=== PATIENT | male | born 1955 ===

== ENCOUNTER 2020-03-22 17:49 | Observation (INO) ==
[2020-03-22 19:02] LABS: ABS Basophils 0.1 10^3/ul (0-0.2); ABS Eosinophils 0.2 10^3/ul (0-0.6); ABS Lymphocytes 1.3 10^3/ul (1.0-4.8); Eosinophil % 2.4 %; Hematocrit 40 % (42-52); Lymphocyte % 14.8 %; Mean Corpuscular HGB Conc 35 g/dL (31-36); Mean Corpuscular Hemoglobin 31 pg (27-31); Mean Corpuscular Volume 90 fL (80-94); Mean Platelet Volume 8.3 fL (7.4-10.4); Platelet Count 216 10^3/uL (150-450); Red Blood Count 4.47 10^6 /uL (4.18-5.48); Red Cell Distribution Width 13 % (10-15); White Blood Count 8.6 10^3/uL (3.5-10.8)
[2020-03-22 19:15] LABS: Activated Partial Thrombo Time 31.5 seconds (26.0-38.0); INR 1.15 (0.82-1.09)
[2020-03-22 19:20] LABS: ALT 16 U/L (7-52); AST 16 U/L (13-39); Albumin/Globulin Ratio 1.3 (1-3); Alkaline Phosphatase 82 U/L (34-104); Anion Gap 9 mmol/L (2-11); BUN/Creatinine Ratio 11.7 (8-20); Blood Urea Nitrogen 11 mg/dL (6-24); CO2 Carbon Dioxide 26 mmol/L (22-32); Calcium 9.5 mg/dL (8.6-10.3); Chloride 104 mmol/L (101-111); EGFR African American 97.2 (>60); EGFR Non-African American 80.3 (>60); Globulin 3.1 g/dL (2-4); Glucose 95 mg/dL (70-100); Potassium 4.1 mmol/L (3.5-5.0); Sodium 139 mmol/L (135-145); Total Protein 7.1 g/dL (6.4-8.9)
[2020-03-22 19:26] LABS: Troponin I 0.04 ng/mL (<0.03)
[2020-03-22] MEDS ORDERED: Ondansetron 4 mg VIAL 2 MG/ML 2 ml VIAL IV PRN (19:39)
[2020-03-22 23:42] LABS: Troponin I 0.03 ng/mL (<0.03)
[2020-03-23 03:59] LABS: Troponin I 0.03 ng/mL (<0.03)
[2020-03-23 05:40] LABS: ABS Basophils 0.1 10^3/ul (0-0.2); ABS Eosinophils 0.3 10^3/ul (0-0.6); ABS Lymphocytes 1.3 10^3/ul (1.0-4.8); Eosinophil % 4.3 %; Hematocrit 40 % (42-52); Hemoglobin 13.7 g/dL (14.0-18.0); Lymphocyte % 17.3 %; Mean Corpuscular HGB Conc 34 g/dL (31-36); Mean Corpuscular Hemoglobin 31 pg (27-31); Mean Corpuscular Volume 91 fL (80-94); Mean Platelet Volume 8.2 fL (7.4-10.4); Platelet Count 204 10^3/uL (150-450); Red Cell Distribution Width 13 % (10-15); White Blood Count 7.4 10^3/uL (3.5-10.8)
[2020-03-23 05:45] LABS: INR 1.22 (0.82-1.09)
[2020-03-23 06:12] LABS: BUN/Creatinine Ratio 14.4 (8-20); Calcium 8.8 mg/dL (8.6-10.3); EGFR African American 102.2 (>60); EGFR Non-African American 84.4 (>60)
[2020-03-23 14:32] VITALS: BP 123/61
== END 2020-03-23 16:30 | disposition home or self-care (01) ==
LOC: MED 17:49 → ED 17:49 → MED 21:27
PROVIDERS: ADMIT Nurse Practitioner Family; ATTEND Internal Medicine